=== PATIENT | male | born 1940 | race Caucasian/White ===

== ENCOUNTER 2023-04-09 09:07 | Outpatient (RCR) | payer MEDICARE, OTHER, SELFPAY | END 2023-04-09 14:38 | disposition home or self-care (01) | LOC: RPT 09:07 | PROVIDERS: ATTENDING PHYSICIAN Family Medicine | DX: M17.11 Unilateral primary osteoarthritis, right knee (principal); Z73.6 Limitation of activities due to disability | CPT/HCPCS: 97110; 97112 ==

== ENCOUNTER → 2023-08-28 08:51 | Outpatient (REF) | payer MEDICARE, OTHER, SELFPAY ==
[2023-08-28 11:05] LABS: Glycohemoglobin (HgbA1c) 5.8 % (4.0-5.6)
[2023-08-28 15:04] LABS: ALT (SGPT) 25 U/L (0-50); AST (SGOT) 29 U/L (17-59); Albumin 4.4 g/dl (3.5-5.0); Alkaline Phosphatase 84 U/L (38-126); Blood Urea Nitrogen 17 mg/dl (9-20); Calcium 9.7 mg/dl (8.4-10.2); Carbon Dioxide 24 mmol/L (22-30); Chloride 107 mmol/L (98-107); Glucose 90 mg/dl (70-99); HDL Cholesterol 58 mg/dl; LDL Cholesterol, Calculated 77 mg/dl; Potassium 4.8 mmol/L (3.5-5.1); Sodium 137 mmol/L (135-145); Total Bilirubin 0.8 mg/dl (0.2-1.3); Total Cholesterol 155 mg/dl (50-199); Total Protein 7.5 g/dl (6.3-8.2); Triglyceride 103 mg/dl (10-149); Very Low Density Lipoprotein 20 mg/dl (0-30); eGFR > 60.00
== END ==
LOC: REG 08:51
PROVIDERS: ATTENDING PHYSICIAN Family Medicine
DX: Z00.00 Encounter for general adult medical examination without abnormal findings (principal); M15.9 Polyosteoarthritis, unspecified; I10 Essential (primary) hypertension; E78.2 Mixed hyperlipidemia; Z86.72 Personal history of thrombophlebitis; R73.01 Impaired fasting glucose; Z23 Encounter for immunization
CPT/HCPCS: 36415; 80053; 80061; 83036

== ENCOUNTER → 2024-01-07 08:27 | Outpatient (REF) | payer MEDICARE, OTHER, SELFPAY ==
[2024-01-07 09:49] LABS: ALT (SGPT) 24 U/L (0-50); AST (SGOT) 28 U/L (17-59); Albumin 4.4 g/dl (3.5-5.0); Alkaline Phosphatase 82 U/L (38-126); Blood Urea Nitrogen 17 mg/dl (9-20); Calcium 9.6 mg/dl (8.4-10.2); Carbon Dioxide 28 mmol/L (22-30); Chloride 104 mmol/L (98-107); Glucose 104 mg/dl (70-99); HDL Cholesterol 53 mg/dl; LDL Cholesterol, Calculated 82 mg/dl; Potassium 4.9 mmol/L (3.5-5.1); Sodium 143 mmol/L (135-145); Total Bilirubin 1.1 mg/dl (0.2-1.3); Total Cholesterol 157 mg/dl (50-199); Total Protein 7.2 g/dl (6.3-8.2); Triglyceride 110 mg/dl (10-149); Very Low Density Lipoprotein 22 mg/dl (0-30); eGFR > 60.00
[2024-01-07 12:58] LABS: Glycohemoglobin (HgbA1c) 5.4 % (4.0-5.6)
== END ==
LOC: REG 08:27
PROVIDERS: ATTENDING PHYSICIAN Family Medicine
DX: E78.2 Mixed hyperlipidemia (principal); R73.01 Impaired fasting glucose
CPT/HCPCS: 36415; 80053; 80061; 83036

== ENCOUNTER → 2024-05-05 09:34 | Outpatient (REF) | payer MEDICARE, OTHER, SELFPAY ==
[2024-05-05 11:55] LABS: ALT (SGPT) 23 U/L (0-50); AST (SGOT) 25 U/L (17-59); Albumin 4.4 g/dl (3.5-5.0); Alkaline Phosphatase 88 U/L (38-126); Blood Urea Nitrogen 17 mg/dl (9-20); Calcium 9.2 mg/dl (8.4-10.2); Carbon Dioxide 28 mmol/L (22-30); Chloride 102 mmol/L (98-107); Glucose 93 mg/dl (70-99); HDL Cholesterol 64 mg/dl; LDL Cholesterol, Calculated 85 mg/dl; Potassium 4.3 mmol/L (3.5-5.1); Sodium 138 mmol/L (135-145); Total Bilirubin 0.9 mg/dl (0.2-1.3); Total Cholesterol 169 mg/dl (50-199); Total Protein 7.4 g/dl (6.3-8.2); Triglyceride 100 mg/dl (10-149); Very Low Density Lipoprotein 20 mg/dl (0-30); eGFR > 60.00
[2024-05-05 13:24] LABS: Glycohemoglobin (HgbA1c) 5.4 % (4.0-5.6)
== END ==
LOC: REG 09:34
PROVIDERS: ATTENDING PHYSICIAN Family Medicine
DX: R78.2 Finding of cocaine in blood (principal); R73.01 Impaired fasting glucose; E78.2 Mixed hyperlipidemia
CPT/HCPCS: 36415; 80053; 80061; 83036

== ENCOUNTER 2024-06-05 08:50 | Outpatient (RCR) | payer MEDICARE, OTHER, SELFPAY | END 2024-06-05 23:59 | disposition home or self-care (01) | LOC: RPT 08:50 | PROVIDERS: ATTENDING PHYSICIAN Family Medicine | DX: M17.11 Unilateral primary osteoarthritis, right knee (principal); M25.561 Pain in right knee; Z73.6 Limitation of activities due to disability; R53.1 Weakness | CPT/HCPCS: 97110; 97162 ==

== ENCOUNTER 2024-07-15 10:58 | Outpatient (RCR) | payer MEDICARE, OTHER, SELFPAY | END 2024-07-15 23:59 | disposition home or self-care (01) | LOC: RPT 10:58 | PROVIDERS: ATTENDING PHYSICIAN Family Medicine | DX: M17.11 Unilateral primary osteoarthritis, right knee (principal); M25.561 Pain in right knee; Z73.6 Limitation of activities due to disability; R53.1 Weakness; R26.89 Other abnormalities of gait and mobility | CPT/HCPCS: 97110; 97112 ==

== ENCOUNTER 2024-08-14 15:17 | Emergency (ER) | payer MEDICARE, OTHER, SELFPAY ==
[2024-08-14] VITALS (7 sets, daily range): BP systolic 126–167; BP diastolic 80–101; BMI 29.2
[2024-08-14 15:46] LABS: % Basophils 0.6 % (0-2); % Eosinophils 2.1 % (0-6); % Immature Granulocytes 0.4 % (0-0.5); % Lymphocytes 28.8 % (20.5-51.1); % Monocytes 7.5 % (1.7-9.3); % Neutrophils 60.6 % (42.2-75.2); Absolute Basophils 0.1 10^3/uL (0-0.2); Absolute Eosinophils 0.2 10^3/uL (0-0.7); Absolute Lymphocytes 2.9 10^3/uL (1.2-3.4); Absolute Monocytes 0.8 10^3/uL (0.1-0.6); Hematocrit 47.1 % (39.0-52.0); Hemoglobin 16.7 g/dL (13.0-18.0); Mean Corp Hgb Conc. 35.5 g/dL (33.0-37.0); Mean Corpuscular Hgb 32.9 pg (27.0-31.0); Mean Corpuscular Volume 92.7 fL (80.0-94.0); Mean Platelet Volume 9.7 fL (7.4-10.4); Nucleated Red Blood Cells % 0 % (-); Platelet Count 178 10^3/uL (130-400); Red Blood Cell Count 5.08 10^6/uL (4.70-6.10); Red Cell Dist. Width 12.8 % (11.5-14.5)
[2024-08-14 15:57] LABS: ALT (SGPT) 21 U/L (0-50); AST (SGOT) 24 U/L (17-59); Albumin 4.5 g/dl (3.5-5.0); Alkaline Phosphatase 79 U/L (38-126); Blood Urea Nitrogen 20 mg/dl (9-20); Calcium 9.3 mg/dl (8.4-10.2); Carbon Dioxide 26 mmol/L (22-30); Chloride 107 mmol/L (98-107); Glucose 98 mg/dl (70-99); INR 1.06; PT 14.1 Sec (11.4-14.6); Potassium 4.5 mmol/L (3.5-5.1); Sodium 142 mmol/L (135-145); Total Bilirubin 0.9 mg/dl (0.2-1.3); Total Protein 7.3 g/dl (6.3-8.2); eGFR > 60.00
--- NOTE | 2024-08-14 23:03 | ED.GENMED ---
History of Present Illness
General
Chief Complaint: Visual Problem
Source: patient and spouse
Time Seen by Provider: 08/14/24 19:05
History of Present Illness
History of Present Illness:
84-year-old male who states when he was driving he had an episode of 'blurred vision'. However while further discussing his symptoms he later described it as double vision. He states that since his previous eye surgery sometimes he does get double
vision when he looks all the way to the left. This occurred similarly but was in his normal gaze. Patient states he covered each eye independently and it seemed to go away. The symptoms completely resolved after about 5 minutes. 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 Spouse states that they called the eye doctor told him to come for evaluation for possible stroke. Patient offers no further complaints. He specifically denies motor weakness, numbness, tingling, speech changes.
Past History
Past History
ED Past Medical History: GERD, HTN and Hypercholesterolemia
ED Past Surgical History: Appendectomy
Phy Exam
Physical Exam
Physical Exam:
CONSTITUTIONAL Patient alert and oriented to person, place and time. Well-appearing. Vital signs reviewed.
HEAD atraumatic, normocephalic.
EYES eyelids normal to inspection, Extraocular muscles intact, Conjunctiva normal, Sclera normal. Pupils are equal round and reactive
NECK normal range of motion, Trachea midline, no jugular venous distention.
RESPIRATORY CHEST No respiratory distress noted, Chest expansion equal, Bilateral breath sounds clear.
CARDIOVASCULAR regular rate and rhythm, Heart sounds normal.
ABDOMEN abdomen nontender, Bowel sounds normal. No distention.
BACK normal inspection, no obvious deformities
UPPER EXTREMITY range of motion normal, Motor strength normal, no cyanosis, no edema.
LOWER EXTREMITY range of motion normal, Motor strength normal, no cyanosis, no edema.
NEURO Speech normal, No focal motor deficits, Katia coma scale 15, Memory normal, Cranial Nerves intact to screening exam. Normal [id number]. No pronator drift.
SKIN skin warm, dry, and normal in color.
Course
Orders/Labs/Results
Orders:
Orders
08/14/24 15:23
EKG [Electrocardiogram (*1)] Urgent
Reason for Study: TIA/Stroke
CT Head W/o Iv Contrast Urgent
Comment:
Reason For Exam: double vision
08/14/24 15:24
EKG- Treatment ONCE
08/14/24 15:31
Complete Blood Count/With Diff Urgent
Comprehensive Metabolic Panel Urgent
Prothrombin Time Urgent
08/14/24 19:48
CT Head & Neck Angio W/wo IV Urgent
Comment:
Reason For Exam: double vision
Abnormal Lab Results
08/14/24
15:31
MCH 32.9 H pg
(27.0-31.0)
Absolute Monos (auto) 0.8 H 10^3/uL
(0.1-0.6)
08/14/24 15:31
08/14/24 15:31
Vital Signs
Initial and Last Documented VS:
Initial Vital Signs
Temp Pulse Resp BP Pulse Ox
98.2 F 83 17 167/93 94
08/14/24 15:19 08/14/24 15:19 08/14/24 15:19 08/14/24 15:19 08/14/24 15:19
Last Documented Vital Signs
Temp Pulse Resp BP Pulse Ox
98.2 F 68 18 126/80 95
08/14/24 15:19 08/14/24 23:15 08/14/24 23:15 08/14/24 23:00 08/14/24 23:15
MDM/Problems Addressed
Differential Diagnosis Includes:
Aneurysm, CVA, TIA, hyperglycemia
MDM/Problems Addressed:
Vision changes
*Radiology
Radiology exam reviewed: radiology read reviewed
*Pulse Oximetry
Patient hypoxic: no
*EKG
Interpreted by ED Provider?: Yes
Interpretation: abnormal
Rate: normal
Rhythm: sinus
[place]: left axis deviation
Ischemia: non-specific ST changes
*Casing Mixer Interpretation
Rate: normal
Interpretation: normal
Rhythm: sinus
*Critical Care Note
Total Time (30-74mins, 75-104mins- exclusive of procedures): Not Applicable
Data Reviewed
Source: patient and family
Patient Management
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
Escalation/DeEscalation of care consider admission/obs:
84-year-old male who presents with vision changes that were brief and have completely resolved. Certainly possible would be TIA. CT and CTA grossly unremarkable for acute process. Certainly no significant carotid stenosis. Patient has a normal
neurologic assessment. Discussed with neurology who agrees that outpatient management is reasonable. Start 81 mg aspirin. Neurology agrees. Patient agrees to follow-up with PCP
ED Attending Note
-
Portions of this chart may have been created with voice recognition software.� Occasional wrong word or��sound alike� substitutions may have occurred due to the inherent limitations of voice recognition software.
Discharge Plan
Departure
Patient Disposition: Home (Routine Discharge)
Date of Disposition: 08/14/24
Time of Disposition: 23:04
Patient with high blood pressure during this ER visit?: No
Discharge Problem:
Vision changes
Instructions: Double Vision (DC)
Referrals:
Seamus Jimenez MD [Family Provider] -
Activity Restrictions/Additional Instructions:
Please take 81 mg of aspirin daily. Please see your doctor in the next 3 days for follow-up and reevaluation. Further evaluation with an MRI and follow-up with a neurologist may be necessary. Return immediately for changes in vision, motor
weakness, speech changes, weakness of any kind, palpitations, passing out episode or any other concerns.
Interventions
Interventions:
*Risk Screen - Suicide Last Done: 08/14/24 15:22
*General Assessment Last Done: 08/14/24 15:22
*Neglect/Abuse Screening Last Done: 08/14/24 15:22
*ED- Fall Risk Assessment Last Done: 08/14/24 23:23
*ED COVID-19 Vaccine History Last Done: 08/14/24 15:22
*Nursing Disposition Last Done: 08/14/24 23:23
ED- Neurological Assessment Last Done: 08/14/24 19:19
ED-EENT Assessment Last Done: 08/14/24 19:19
ED Swallowing Screen Last Done: 08/14/24 20:04
Discharge Date and Time
Discharge Date/Time: 08/14/24 23:24
Print Language: YI
== END 2024-08-14 23:24 | disposition home or self-care (01) ==
LOC: EMR 15:17
PROVIDERS: Emergency Medicine; EMERGENCY PHYSICIAN Emergency Medicine; FAMILY PHYSICIAN Family Medicine
DX: H53.8 Other visual disturbances (principal); K21.9 Gastro-esophageal reflux disease without esophagitis; I10 Essential (primary) hypertension; E78.00 Pure hypercholesterolemia, unspecified; Z90.49 Acquired absence of other specified parts of digestive tract
CPT/HCPCS: 99284; 70450; 70496; 70498; 80053; 85025; 85610; 93005; Q9967

== ENCOUNTER → 2024-10-21 08:35 | Outpatient (REF) | payer MEDICARE, OTHER, SELFPAY ==
[2024-10-21 09:13] LABS: % Basophils 0.4 % (0-2); % Immature Granulocytes 0.5 % (0-0.5); % Monocytes 7.4 % (1.7-9.3); % Neutrophils 60.7 % (42.2-75.2); Absolute Eosinophils 0.2 10^3/uL (0-0.7); Absolute Lymphocytes 2.3 10^3/uL (1.2-3.4); Absolute Monocytes 0.6 10^3/uL (0.1-0.6); Absolute Neutrophils 4.9 10^3/uL (1.4-6.5); Hematocrit 48.3 % (39.0-52.0); Hemoglobin 16.7 g/dL (13.0-18.0); Mean Corp Hgb Conc. 34.6 g/dL (33.0-37.0); Mean Corpuscular Hgb 32.1 pg (27.0-31.0); Mean Corpuscular Volume 92.7 fL (80.0-94.0); Mean Platelet Volume 9.7 fL (7.4-10.4); Nucleated Red Blood Cells % 0 % (-); Platelet Count 173 10^3/uL (130-400); Red Blood Cell Count 5.21 10^6/uL (4.70-6.10); Red Cell Dist. Width 12.4 % (11.5-14.5); White Blood Cell Count 8.1 10^3/uL (4.8-10.8)
[2024-10-21 10:30] LABS: Glycohemoglobin (HgbA1c) 5.5 % (4.0-5.6)
[2024-10-21 10:42] LABS: ALT (SGPT) 21 U/L (0-50); AST (SGOT) 21 U/L (17-59); Albumin 4.2 g/dl (3.5-5.0); Alkaline Phosphatase 81 U/L (38-126); Blood Urea Nitrogen 18 mg/dl (9-20); Calcium 9.3 mg/dl (8.4-10.2); Carbon Dioxide 25 mmol/L (22-30); Chloride 109 mmol/L (98-107); Glucose 95 mg/dl (70-99); HDL Cholesterol 55 mg/dl; LDL Cholesterol, Calculated 103 mg/dl; Potassium 4.7 mmol/L (3.5-5.1); Sodium 143 mmol/L (135-145); Total Bilirubin 0.8 mg/dl (0.2-1.3); Total Cholesterol 176 mg/dl (50-199); Total Protein 7.1 g/dl (6.3-8.2); Triglyceride 92 mg/dl (10-149); Very Low Density Lipoprotein 18 mg/dl (0-30); eGFR > 60.00
== END ==
LOC: REG 08:35
PROVIDERS: ATTENDING PHYSICIAN Family Medicine
DX: E78.2 Mixed hyperlipidemia (principal); R73.01 Impaired fasting glucose; D72.829 Elevated white blood cell count, unspecified
CPT/HCPCS: 36415; 80053; 80061; 83036; 85025